=== PATIENT | female | born 1995 | race American Indian/Alaskan Native ===

== ENCOUNTER 2017-08-30 02:25 | Inpatient (IN) | payer MEDICAID ==
[2017-08-30] MEDS ORDERED: LACTATED RINGERS 500 ML IV ONE (02:31)
[2017-08-30] MEDS ORDERED: LACTATED RINGERS 1,000 ML IV SCH (03:00)
[2017-08-30] MEDS ORDERED: PITOCin/NS 20 UNIT/1000ML DRIP 20,000 MILLIUNITS/1,000 ML BAG IV ONE ×2 (03:10→04:56)
--- NOTE | 2017-08-30 03:22 | History and Physical Report ---
History of Present Illness Date of examination: 08/30/17 Date of admission: 08/30/17 02:53 Chief complaint: Painful contractions History of present illness: 22-year-old 001 at 36 and 5 weeks presents in active labor, she is a [place] patient. course has been unremarkable, she is GBS negative. Patient is awaiting 8-9 cm dilated and 0 station Past History Past Medical History: no pertinent history Past Surgical History: no surgical history [employer] History: denies: chlamydia, gonorrhea, hepatitis B, hepatitis C, herpes, HIV , trichomonas Social history: single, full code. denies: smoking, alcohol abuse, prescription drug abuse, IV drug use - Obstetrical History Expected Date of Delivery: 09/22/17 Actual Gestation: 36 Week(s) 5 Day(s) : 2 Para: 1 Medications and Allergies Allergies Allergy/AdvReac Type Severity Reaction Status Date / Time No Known Allergies Allergy Verified 08/30/17 02:33 Active Meds: Active Medications Lactated Ringer's (Lactated Ringers) 1,000 mls @ 999 mls/hr IV DIRECT FAY Stop: 08/30/17 04:01 Review of Systems Constitutional: no fever, no chills, no fatigue Eyes: no diplopia, no photophobia Cardiovascular: no chest pain, no syncope, no lightheadedness, no shortness of breath, no dyspnea on exertion, no high blood pressure Respiratory: no cough, no shortness of breath, no dyspnea on exertion Gastrointestinal: no abdominal pain, no nausea, no vomiting Genitourinary: contractions, no vaginal bleeding, no vaginal discharge, no leakage of fluid - Vital Signs Vital signs: Vital Signs Pulse BP 78 122/69 08/30/17 02:38 08/30/17 02:38 Temp Pulse Resp BP Pulse Ox 98.2 F 78 20 122/68 08/30/17 02:53 08/30/17 02:53 08/30/17 02:53 08/30/17 02:53 - Physical Exam Abdomen: Positive: normal appearance, soft. Negative: distention, tenderness, guarding, rigidity Genitourinary (Female): Positive: normal external genitalia Uterus: Positive: enlarged (EFW ~ 3200) Adnexa: both: normal Extremities: Positive: normal - Obstetrical FHR: category 1 Cervical Dilatation: 8.5 station: 0 Results All other labs normal. Assessment and Plan A: 22-year-old 001 at 36+5 weeks in active labor -Category 1 tracing P: -Admit -Routine labs -Declines epidural -Anticipate normal vaginal delivery - Patient Problems (1) 36 to 37 weeks gestation of Current Visit: Yes Status: Acute (2) Active labor Current Visit: Yes Status: Acute Qualifiers: Fetus number: F
[2017-08-30 03:32] LABS: Hematocrit 33.5 % (30.3-42.9); Mean Corpuscular HGB Conc 33 % (30-34); Mean Corpuscular Volume 74 fl (79-97); Platelet Count 145 K/mm3 (140-440); Red Blood Count 4.54 M/mm3 (3.65-5.03); Red Cell Distribution Width 15.1 % (13.2-15.2); White Blood Count 12.7 K/mm3 (4.5-11.0)
[2017-08-30 03:37] LABS: Mean Corpuscular Hemoglobin 24 pg (28-32)
[2017-08-30 03:38] LABS: Bacteria,Urine 1+ /HPF (Negative); Bilirubin,Urine NEG (Negative); Blood,Urine NEG (Negative); Ketones,Urine NEG (Negative); Leukocyte Esterase,Urine LG (Negative); Mucus,Urine FEW /HPF; Nitrite,Urine NEG (Negative); Protein,Urine <15 mg/dL mg/dL (Negative); Urobilinogen,Urine < 2.0 mg/dL (<2.0)
[2017-08-30] MEDS ORDERED: LANSINOH TP PRN (03:39)
[2017-08-30] MEDS ORDERED: ANUCORT-HC PR PRN (03:39)
[2017-08-30] MEDS ORDERED: ZOFRAN IV PRN (03:39)
[2017-08-30] MEDS ORDERED: DULCOLAX PR PRN (03:39)
[2017-08-30] MEDS ORDERED: BENADRYL PO PRN (03:39)
[2017-08-30] MEDS ORDERED: MILK OF MAGNESIA PO PRN (03:39)
[2017-08-30] MEDS ORDERED: NORCO 5/325 PO PRN (03:39)
[2017-08-30] MEDS ORDERED: TYLENOL PO PRN (03:39)
[2017-08-30] MEDS ORDERED: PHENERGAN PO PRN (03:39)
[2017-08-30] MEDS ORDERED: TUCKS PAD TP PRN (03:39)
[2017-08-30] MEDS ORDERED: PHENERGAN PR PRN (03:39)
--- NOTE | 2017-08-30 03:39 | Procedure Note ---
OB Delivery Note - Delivery Date of Delivery: 08/30/17 Surgeon: LINA HATFIELD Estimated blood loss: 300cc - Vaginal Delivery presentation: vertex Delivery position: OA Intrapartum events: labor-<37 weeks, precipitous labor- <3hr Delivery induction: none Delivery augmentation: rupture of membranes Delivery monitor: external FHT, external uterine Route of delivery: Delivery placenta: spontaneous Delivery cord: 3 umbilical vessels Episiotomy: none Delivery laceration: none Anesthesia: none - A at 1 minute: 8 at 5 minutes: 9 Gender: Male (time of delivery 3:21 AM, weight 5 lbs. 5 oz. or 2410 g)
[2017-08-30] MEDS ORDERED: SODIUM CHLORIDE FLUSH SYRINGE 10 ML IV PRN (04:00)
[2017-08-30] MEDS: MOTRIN PO SCH ×4 (04:54→23:29)
[2017-08-30] MEDS ORDERED: PITOCin/NS 20 UNIT/1000ML DRIP 20 UNITS/1,000 ML BAG IV SCH (06:00)
[2017-08-30] MEDS: COLACE PO SCH ×2 (10:49→23:30)
[2017-08-30] MEDS: FEOSOL PO SCH ×2 (10:49→23:30)
[2017-08-30] MEDS: PRENATAL VITAMIN PO SCH (10:49)
[2017-08-30] MEDS ORDERED: Fluarix Quad 2017-2018(36 MOS+) IM ONE (12:00)
[2017-08-30 17:19] LABS: Hematocrit 30.8 % (30.3-42.9)
[2017-08-31] MEDS: MOTRIN PO SCH ×4 (05:52→23:17)
[2017-08-31] MEDS ORDERED: BOOSTRIX IM ONE (06:00)
--- NOTE | 2017-08-31 10:09 | Progress Note ---
Assessment and Plan - Patient Problems (1) (normal spontaneous vaginal delivery) Onset Date: 08/31/17 Current Visit: Yes Status: Resolved Plan to address problem: A: S/P - PPD #1 Doing well Asymptomatic anemia - stable P: May go home today Subjective - Subjective Date of service: 08/31/17 Principal diagnosis: s/p - PPD #1 Interval history: Pt is feeling well without complaints. Bleeding improved. Patient reports: appetite normal, voiding normally, pain well controlled, flatus , ambulating normally [place]: doing well, bottle feeding Objective - Vital Signs Latest vital signs: Vital Signs Temp Pulse Resp BP BP Pulse Ox 08/31/17 05:52 18 08/31/17 00:30 98.6 F 71 16 121/76 08/30/17 23:29 18 08/30/17 23:16 98.6 F 69 18 101/77 08/30/17 17:20 97.9 F 97 H 18 107/77 96 08/30/17 13:24 97.6 F 99 H 18 114/77 97 Intake and Output 08/30/17 08/31/17 08/31/17 22:59 06:59 14:59 Intake Total 780 550 Output Total 600 Balance 180 550 Intake: Oral 480 300 Intake, Free Water 300 250 Output: Urine 600 Void 600 Other: Total, Intake Amount 480 300 Total, Output Amount 600 - Exam Breasts: Present: deferred Cardiovascular: Present: Regular rate Lungs: Present: Clear to auscultation Abdomen: Present: normal appearance, soft Uterus: Present: normal, firm, fundal height below umbilicus Extremities: Present: normal - Labs Labs: Abnormal lab results 08/30/17 Range/Units 16:43 Hgb 10.0 L (10.1-14.3) gm/dl Laboratory Tests 08/30/17 08/30/17 08/30/17 03:00 03:11 03:11 WBC 12.7 H RBC 4.54 Hgb 11.0 Hct 33.5 MCV 74 L MCH 24 L MCHC 33 RDW 15.1 Plt Count 145 Urine Color Yellow Urine Turbidity Clear Urine pH 6.0 Ur Specific [place] 1.017 Urine Protein <15 mg/dl Urine Glucose (UA) Neg Urine Ketones Neg Urine Blood Neg Urine Nitrite Neg Urine Bilirubin Neg Urine Urobilinogen < 2.0 Ur Leukocyte Esterase Lg Urine WBC (Auto) 29.0 H Urine RBC (Auto) 4.0 U Epithel Cells (Auto) 17.0 H Urine Bacteria (Auto) 1+ Urine Mucus Few RPR Nonreactive Blood Type Antibody Screen [place] Antibody Screen 08/30/17 08/30/17 03:11 16:43 WBC RBC Hgb 10.0 L Hct 30.8 MCV MCH MCHC RDW Plt Count Urine Color Urine Turbidity Urine pH Ur Specific [place] Urine Protein Urine Glucose (UA) Urine Ketones Urine Blood Urine Nitrite Urine Bilirubin Urine Urobilinogen Ur Leukocyte Esterase Urine WBC (Auto) Urine RBC (Auto) U Epithel Cells (Auto) Urine Bacteria (Auto) Urine Mucus RPR Blood Type B POSITIVE Antibody Screen Not Reportable [place] Antibody Screen Negative
--- NOTE | 2017-08-31 10:10 | Discharge Summary ---
Providers - Providers Date of Admission: 08/30/17 02:53 Date of discharge: 08/31/17 Attending physician: LINA HATFIELD Primary care physician: LINA HATFIELD Hospitalization Reason for admission: active labor, IUP - , labor Delivery: Episiotomy: none Laceration: none Other procedures: none complications: none Discharge diagnosis: delivery baby: male Hospital course: Unremarkable. Condition at discharge: Good Disposition: DC-[id number] TO HOME OR SELFCARE - Discharge Diagnoses (1) (normal spontaneous vaginal delivery) Status: Resolved Plan - Discharge Medications Prescriptions: Ibuprofen [Motrin 600 MG tab] 600 mg PO Q8H PRN #30 tablet PRN Reason: Pain Multivitamin with Iron [Multivitamins with Iron] 1 each PO DAILY #30 tablet - Provider Discharge Summary Activity: routine, no sex for 6 weeks, no heavy lifting 4 weeks, no strenuous exercise Diet: routine Instructions: routine Additional instructions: [] Smoking cessation referral if applicable(refer to patient education folder for contact #) [] Refer to [facility] Booklet Call your doctor immediately for: * Fever > 100.5 * Heavy vaginal bleeding ( >1 pad per hour) * Severe persistent headache * Shortness of breath * Reddened, hot, painful area to leg or breast * Drainage or odor from incision. * Keep incision clean and dry at all times and follow doctor's instructions regarding bathing/showering - Follow up plan Follow up: LINA HATFIELD MD [Primary Care Provider] - 6 Weeks
[2017-08-31] MEDS: PRENATAL VITAMIN PO SCH (16:22)
[2017-08-31] MEDS: COLACE PO SCH ×2 (16:22→23:17)
[2017-08-31] MEDS: FEOSOL PO SCH ×2 (16:22→23:17)
[2017-09-01] MEDS: MOTRIN PO SCH (06:19)
[2017-09-01 09:27] VITALS: BP 98/56
== END 2017-09-01 11:15 | disposition home or self-care (01) | DRG 775 ==
LOC: TRG 02:25 → LD 02:53 → TRG 02:53 → OB 05:22
PROVIDERS: ADMIT Obstetrics & Gynecology Gynecology; ATTEND Obstetrics & Gynecology Gynecology
PROC: 10E0XZZ Delivery of Products of Conception, External Approach (ICD-10-PCS; principal; 2017-08-30)
PROC: 3E0234Z Introduction of Serum, Toxoid and Vaccine into Muscle, Percutaneous Approach (ICD-10-PCS; 2017-08-30)
DX: O60.14X0 Preterm labor third trimester with preterm delivery third trimester, not applicable or unspecified (principal); O62.3 Precipitate labor; Z3A.36 36 weeks gestation of pregnancy; Z37.0 Single live birth; Z23 Encounter for immunization; O90.81 Anemia of the puerperium; D64.9 Anemia, unspecified
CPT/HCPCS: 36415; 81001; 85014; 85018; 85027; 86592; 86850; 86900; 86901; 90471; 90686; 90715; 99211; G0008; G0463; J2590; J7120